=== PATIENT | male | born 1980 | race Two or more races ===

== ENCOUNTER 2024-05-31 13:25 | Emergency (ER) | payer MEDICAID, SELFPAY ==
--- NOTE | 2024-05-31 13:32 | EDNOTE_ITS ---
ED Overdose RME/HPI General Stated Complaint: OD Time Seen by Provider: 05/31/24 13:32 Arrival date/time: 05/31/24 13:25 RME / HPI RME / HPI Narrative: Patient is a 43 year old male presenting to the ED BIBA for reported overdose. Patient states he passed out from smoking too much methamphetamines. Per EMS patient was found down, possibly given Narcan, CPR was started. By the time they got there the patient was conscious GCS 15. No further reported history. Review of Systems Review of Systems Narrative Review of Systems: Gen: No fever, no chills, no weight loss EYES: No discharge, no visual changes, no pain HEENT: No ear pain, no congestion, no sore throat PULM: No shortness of breath, no cough, no congestion CV: No chest pain, no dyspnea on exertion, no palpitations GI: No nausea, no vomiting, no diarrhea, no pain, no constipation : No frequency, no urgency, no dysuria Musc/skel: No joint pain, no back pain Skin: No rash Psyc: No hallucinations, no depression Heme/Lymph: No easy bleeding or bruising tendencies Neuro: No weakness, no headache ED Exam Narrative Physical exam: GENERAL APPEARANCE: AxOx4, generally well-appearing, no acute distress. HEENT: NC, AT. MMM. EOMI, clear conjunctiva, oropharynx clear. NECK: Supple without lymphadenopathy. No stiffness or restricted ROM. HEART: Normal rate and regular rhythm, normal S1/S1, no m/r/g LUNGS: CTAB, moving air well. No crackles or wheezes are heard. ABDOMEN: Soft, nontender, nondistended with good bowel sounds heard. BACK: No midline C/T/L spine pain or deformity, No CVAT, no obvious deformity. EXTREMITIES: Without cyanosis, clubbing or edema. MUSCULOSKELETAL: FROM of all major joints, no chest tenderness NEUROLOGICAL: Grossly nonfocal. Alert and oriented, moving all 4 extremities. CN not formally tested but appear grossly intact. Observed to ambulate with normal gait. Skin: Warm and dry without any rash. Course Quality Measures none Reevaluation(s) Reevaluation #1: Patient in the ambulance bay area, is awake and alert, with his two hour reevaluation. After possibly receiving Narcan. He is stable. Patient remains clinically stable throughout the emergency department visit. Re- assessment at the time of disposition demonstrates that the patient is in no acute distress. We reviewed all the results, analysis, and treatment plans. Patient is amenable to discharge. Strict return precautions were outlined. Patient was discharged in stable condition. Time: 15:17 Vital Signs Vital signs: Vital Signs Temperature 97.8 F 05/31/24 13:33 Pulse Rate 99 05/31/24 13:33 Respiratory Rate 15 05/31/24 13:33 Blood Pressure 143/95 H 05/31/24 13:33 Pulse Oximetry (%) 93 L 05/31/24 13:33 Oxygen Delivery Method Room Air 05/31/24 13:33 Overdose Patient data External records reviewed:: [facility] previous records and EMS form Clinical information provided by:: patient and EMS Social determinants that could affect healthcare access:: substance use Patient has the following chronic illnesses:: none How is presenting disease/condition affected by chronic disease/condition?: no chronic disease Evaluation data The following diagnostics were reviewed and interpreted by me:: other (specify) (none) Lab and/or radiology exams considered but not ordered:: none Interpretation Summary: none Medications / Prescriptions Medications or Prescriptions considered but not ordered:: none Medication administrations:: none Consultations Consultation(s) initiated? (list below): No Diagnosis Overdose Differential Diagnosis: poisoning by opiate or related narcotic, drug overdose and accidental drug ingestion Most likely diagnosis given after review of the tests above:: Drug overdose Admission Indicated Admission indicated?: not indicated Admission Request Was there a request for admission?: No Disposition Plan Disposition Plan: Discharge Discharge Attestation Discharge Attestation: The patient and all family members were given an opportunity to ask questions and understood the discharge instructions. Discharge instructions specifically effects, indications for sooner follow up or return to the emergency department, and the expected course of current diagnosis. Patient condition: Stable Discharge Plan Plan Patient Disposition: HOME (Self Care) Patient condition on transfer: Stable Prescriptions/Referrals Referrals: No Primary/Family,Physician [Primary Care Provider] - In 1 week Problem List Clinical Impression: Drug overdose Patient/Caregiver Discharge Instructions Education Materials: ED Accidental Ingestion Nontoxic Adult Additional Instructions: Do not use illicit drugs. You can follow-up with your primary care doctor and or [facility] if you feel ready for drug and/or alcohol rehabilitation programs. You can return to the emergency department sooner symptoms worsen if notes any new, concerning issues. Print Language: Unknown Stand Alone Forms: April Award Info., Patient Portal Info Letter
[2024-05-31 13:33] VITALS: BP 143/95; PULSE 99; RESP 15; TEMP 36.6; O2SAT 93; BMI 24.2
[2024-05-31 15:15] VITALS: PULSE 106
[2024-05-31 15:25] VITALS: BP 157/106; PULSE 86; RESP 15; TEMP 36.4; O2SAT 96
== END 2024-05-31 16:09 | disposition home or self-care (01) ==
PROVIDERS: Emergency Provider Emergency Medicine
DX: T43.651A Poisoning by methamphetamines accidental (unintentional), initial encounter (principal); R55 Syncope and collapse
CPT/HCPCS: 96127; 99283